=== PATIENT | female | born 1990 | race Caucasian/White ===

== ENCOUNTER 2019-09-02 20:48 | Emergency (ER) | payer BC ==
[2019-09-02 21:16] VITALS: BP 133/95
[2019-09-02] MEDS ORDERED: Lidocaine 1% MPF* 2 ML VIAL INJ ONE (21:21)
--- NOTE | 2019-09-02 21:32 | UC ---
Skin Complaint HPI - HPI Summary HPI Summary: Had a lump on the outside of the right breast. In the last several days has gotten more swollen adn painful, now with spreading redness. - History of Current Complaint Chief Complaint: UCSkin Stated Complaint: POSSIBLE CYST ON CHEST Hx Obtained From: Patient Hx Last Menstrual Period: IUD ?: No Onset/Duration: Sudden Onset, Lasting Days - 4, Worse Since - onset Onset Severity: Mild Current Severity: Moderate Pain Intensity: 6 Location: Discrete - side of the right breast. Character: Swelling, Redness, Painful Aggravating Factor(s): Touch Alleviating Factor(s): Nothing Associated Signs & Symptoms: Positive: Tenderness. Negative: Fever, Chills - Allergy/Home Medications Allergies/Adverse Reactions: Allergies Allergy/AdvReac Type Severity Reaction Status Date / Time cephalexin [From Keflex] Allergy Intermediate Rash Verified 09/02/19 21:10 Sulfa (Sulfonamide Allergy Intermediate Rash Verified 09/02/19 21:10 Antibiotics) ciprofloxacin [From Cipro] Allergy Mild Rash Verified 09/02/19 21:10 Home Medications: Home Medications Albuterol HFA INHALER* [Ventolin HFA Inhaler*] 1 inh Q6HR PRN 09/02/19 [History Confirmed 09/02/19] Beclomethasone Dipropionate [Qnasl] 1 spray BID 09/02/19 [History Confirmed 11/09] Cetirizine* [ZyrTEC 10 MG TAB*] 1 tab QAM 09/02/19 [History Confirmed 09/02/19] Dexlansoprazole [Dexilant] 1 tab DAILY 09/02/19 [History Confirmed 09/02/19] Fluticasone/Vilanterol MDI(NF) [Breo Ellipta MDI 100/25(NF)] 1 puff QPM [History Confirmed 09/02/19] Hyoscyamine TAB* [Anaspaz 0.125 MG TAB*] 1 - 2 tab Q6HR PRN 09/02/19 [History Confirmed 09/02/19] Montelukast Sodium TAB* [Singulair 10 MG TAB*] 1 tab QPM 09/02/19 [History Confirmed 09/02/19] Ondansetron TAB* [Zofran 4 MG Tab*] 1 tab Q6HR PRN 09/02/19 [History Confirmed 09/02/19] PMH/Surg Hx/FS Hx/Imm Hx Previously Healthy: Yes - Surgical History Surgical History: Yes Surgery Procedure, Year, and Place: gallbladder - Family History Known Family History: Positive: Cardiac Disease, Hypertension, Diabetes - Social History Occupation: Employed Full-time Lives: With Family Alcohol Use: Occasionally Substance Use Type: None Smoking Status (MU): Light Every Day Tobacco Smoker Type: Cigarettes Amount Used/How Often: 1/2 PPD Review of Systems All Other Systems Reviewed And Are Negative: Yes Skin: Positive: Other - swelling redness and pain right side of the breast. ENT: Positive: Nasal Discharge - with allergies, Sinus Pain/Tenderness - on doxycycline for sinus infection. Physical Exam Triage Information Reviewed: Yes Appearance: Well-Appearing, Pain Distress - mild, Obese Vital Signs: Initial Vital Signs Temp 98.3 F 09/02/19 21:11 Pulse 89 09/02/19 21:11 Resp 24 09/02/19 21:11 BP 133/95 09/02/19 21:11 Pulse Ox 97 09/02/19 21:11 Vital Signs Reviewed: Yes Eyes: Positive: Conjunctiva Clear ENT: Positive: Pharynx normal, Nasal congestion, TMs normal Neck exam: Normal Respiratory Exam: Normal Cardiovascular Exam: Normal Musculoskeletal Exam: Normal Neurological Exam: Normal Psychological Exam: Normal Skin: Positive: Other - right side of the breast 9x7 erythematous area with central 2x2 cm fluctuent area with punctum. Procedures - Incision and Drainage Right Upper Lateral Breast Site: Right upper lateral breast Anesthesia: Topical - 2cc 1% lido Instrument(s): Needle - 18 g needle used to incise and drain the cyst/ abscess Course/Dx - Differential Diagnoses - Skin Complaint Differential Diagnoses: Abscess, Cellulitis, Lymphangitis, MRSA - Diagnoses Provider Diagnosis: Abscess of skin of breast, Allergic rhinitis Discharge ED - Sign-Out/Discharge Documenting (check all that apply): Patient Departure All imaging exams completed and their final reports reviewed: No Studies - Discharge Plan Condition: Stable Disposition: HOME Prescriptions: Clarithromycin TAB* [Biaxin 500 MG TAB*] 500 mg PO BID #14 tab Patient Education Materials: Abscess (ED), Abscess Incision and Drainage (DC), Clarithromycin (By mouth) Referrals: No Primary Care Phys,NOPCP [Primary Care Provider] - Additional Instructions: NEILMED SINUS RINSE: CHECK OUT AT [employer] Saline nasal wash helps with mucous, allergies and congestion. It can be used up to twice a day or only as needed. Use lukewarm tap water. It does not have to be sterilized or distilled water. Do 1/3 on each side and snort out of both nostrils. Repeat the process with 1/6 of the bottle on each side with snorting in between to finish the solution in the bottle Smoking Cessation Tricks. 1. Cut down by 1 cigarette per day every 2-3 days. Write the number of smokes for that day on the calendar. 2. Identify triggers to smoking: after meals, on the phone, in the car, with coffee, on breaks at work, etc. 3. Formulate a plan with a behavior to replace the smoking. Fireballs in the car , doodle pad on the phone, flavored creamer for the coffee, go for a walk after a meal or on break at work. 4. For stress smokes do deep breathing relaxation. Breath deep in through the nose hold the breath in for a few seconds then breath out slowly through the mouth. DO NOT TAKE THE ZOFRAN WHILE ON THE CLARITHROMYCIN - Billing Disposition and Condition Condition: STABLE Disposition: Home
[2019-09-02] MEDS ORDERED: Clarithromycin TAB* 500 MG PO ONE (21:44)
--- NOTE | 2019-09-04 07:24 | UC ---
- Progress Note Progress Note: MRSA neg 1+ pos cocci On clarithromycin await sensitivity no change Tad Course/Dx - Diagnoses Provider Diagnoses: Abscess of skin of breast, Allergic rhinitis Discharge ED - Sign-Out/Discharge Documenting (check all that apply): Post-Discharge Follow Up All imaging exams completed and their final reports reviewed: No Studies - Discharge Plan Condition: Stable Disposition: HOME Prescriptions: Clarithromycin TAB* [Biaxin 500 MG TAB*] 500 mg PO BID #14 tab Patient Education Materials: Clarithromycin (By mouth), Abscess (ED), Abscess Incision and Drainage (DC) Referrals: No Primary Care Phys,NOPCP [Primary Care Provider] - Additional Instructions: NEILMED SINUS RINSE: CHECK OUT AT [facility] Saline nasal wash helps with mucous, allergies and congestion. It can be used up to twice a day or only as needed. Use lukewarm tap water. It does not have to be sterilized or distilled water. Do 1/3 on each side and snort out of both nostrils. Repeat the process with 1/6 of the bottle on each side with snorting in between to finish the solution in the bottle Smoking Cessation Tricks. 1. Cut down by 1 cigarette per day every 2-3 days. Write the number of smokes for that day on the calendar. 2. Identify triggers to smoking: after meals, on the phone, in the car, with coffee, on breaks at work, etc. 3. Formulate a plan with a behavior to replace the smoking. Fireballs in the car , doodle pad on the phone, flavored creamer for the coffee, go for a walk after a meal or on break at work. 4. For stress smokes do deep breathing relaxation. Breath deep in through the nose hold the breath in for a few seconds then breath out slowly through the mouth. DO NOT TAKE THE ZOFRAN WHILE ON THE CLARITHROMYCIN - Billing Disposition and Condition Condition: STABLE Disposition: Home
== END 2019-09-02 22:00 | disposition home or self-care (01) ==
LOC: UCCORT 20:48
DX: N61.1 Abscess of the breast and nipple (principal); J30.9 Allergic rhinitis, unspecified; F17.210 Nicotine dependence, cigarettes, uncomplicated; Z88.1 Allergy status to other antibiotic agents; Z88.2 Allergy status to sulfonamides; Z79.899 Other long term (current) drug therapy
CPT/HCPCS: 10060; 87070; 87205; 87640; 87641; 99202; A9270-GY; G0463